=== PATIENT | female | born 1970 | race Caucasian/White ===

== ENCOUNTER 2024-01-24 17:05 | Emergency (ER) | payer MEDICAID ==
[~2024-01-24] VITALS: Ht 167.6 cm; Wt 72.7 kg
[2024-01-24 17:17] VITALS: BP 120/77; PULSE 72; RESP 18; TEMP 98.1; O2SAT 97
== END 2024-01-24 18:00 | disposition left against medical advice (07) ==
LOC: ER 17:05
DX: K08.89 Other specified disorders of teeth and supporting structures (principal); Z53.21 Procedure and treatment not carried out due to patient leaving prior to being seen by health care provider

== ENCOUNTER 2024-01-26 10:47 | Emergency (ER) | payer MEDICAID ==
[~2024-01-26] VITALS: Ht 167.6 cm; Wt 73.0 kg
[2024-01-26 11:04] VITALS: BP 121/75; PULSE 74; RESP 16; TEMP 98.9; O2SAT 100
[2024-01-26] MEDS ORDERED: T3 PO ×2 (11:23→11:29)
== END 2024-01-26 13:21 | disposition home or self-care (01) ==
LOC: ER 12:51
DX: K08.89 Other specified disorders of teeth and supporting structures (principal)
CPT/HCPCS: 99282